=== PATIENT | female | born 1970 | race African-American/Black ===

== ENCOUNTER 2017-01-14 08:34 | Inpatient (IN) | payer OTHER ==
[2017-01-12 14:02] VITALS: BMI 42.0
[~2017-01-14 08:34] MED LIST: BUPIVACAINE HCL/PF 0.5% (5MG/ML) 10 ML VIAL IJ ONE
[2017-01-14] MEDS ORDERED: LIDOCAINE HCL/PF 2% SDV 5ML VIAL ONE (10:04)
[2017-01-14] MEDS ORDERED: PROPOFOL 20 ML ONE ×3 (10:05→12:35)
[2017-01-14] MEDS ORDERED: ROCURONIUM BROMIDE 50 MG/5 ML VIAL ONE (10:05)
[2017-01-14] MEDS ORDERED: SUCCINYLCHOLINE CHLORIDE 200 MG/10 ML VIAL ONE (10:05)
[2017-01-14] MEDS ORDERED: MIDAZOLAM HCL 2 MG/2 ML SINGLE DOSE VIAL ONE (10:05)
[2017-01-14] MEDS ORDERED: ceFAZolin SODIUM 1 GM VIAL IVPB ONE (10:58)
[2017-01-14] MEDS ORDERED: ceFAZolin SODIUM 1 GM VIAL ONE (10:58)
[2017-01-14] MEDS ORDERED: BUPIVACAINE HCL/PF 0.5% (5MG/ML) 10 ML VIAL ONE (11:05)
[2017-01-14] MEDS ORDERED: NEOSTIGMINE METHYLSULFATE 0.5 MG/ML - 10 ML MDV ONE (12:39)
[2017-01-14] MEDS ORDERED: BUPIVACAINE HCL/PF 0.5% (5MG/ML) 10 ML VIAL IJ ONE (12:45)
[2017-01-14] MEDS ORDERED: GLYCOPYRROLATE 0.2 MG/1 ML VIAL ONE (13:15)
[2017-01-14] MEDS ORDERED: PROMETHAZINE HCL 25 MG/1 ML VIAL ONE (13:18)
[2017-01-14] MEDS ORDERED: ONDANSETRON 4 MG/2 ML VIAL IVPUSH PRN (13:23)
[2017-01-14] MEDS ORDERED: PROMETHAZINE HCL 25 MG/1 ML VIAL IVPUSH PRN (13:23)
--- NOTE | 2017-01-14 13:24 | HP ---
History & Physical Update - History History: No Change - Physical Physical: No Change - Assessment Assessment: No Change - Plan Plan: No Change Currently as noted:: Laparoscopic vertical sleeve gastrectomy, possible liver biopsy
[2017-01-14] MEDS ORDERED: HYDROmorphone HCL CARPU-JECT 1 MG/1 ML DISP.SYRIN IVPB PRN (13:27)
[2017-01-14] MEDS ORDERED: ALBUTEROL SO4 18 GM HFA INHALER IH PRN ×2 (13:28→17:54)
[2017-01-14] MEDS ORDERED: ACETAMINOPHEN 1000 MG/100 ML VIAL (NON FORMULARY) IVPB SCH (13:30)
[2017-01-14] MEDS ORDERED: LACTATED RINGERS SOLUTION 1,000 ML IV SCH (13:30)
[2017-01-14] MEDS ORDERED: ONDANSETRON 4 MG/2 ML VIAL IVPB SCH (13:30)
[2017-01-14] MEDS ORDERED: SODIUM CHLORIDE 1,000 ML IV SCH (13:30)
--- NOTE | 2017-01-14 13:31 | OP ---
Operative Note - Note: Operative Date: 01/14/17 Pre-Operative Diagnosis: Morbid obesity Operation: Laparoscopic vertical sleeve gastrectomy, wedge liver biopsy, upper endoscopy Post-Operative Diagnosis: Other (morbid obesity, hepatomegaly) Surgeon: Jonathan Lamas Preassembler [employer]ed [employer] Board: Roxanne Persaud Anesthesia: General Specimens Removed: Greater curvature of stomach, left lobe liver wedge biopsy Estimated Blood Loss (mls): 30 Drains & Tubes with Location: 36 fr Bougie Operative Report Dictated: Yes
[2017-01-14] MEDS ORDERED: HYDROmorphone HCL CARPU-JECT 2 MG/1 ML DISP.SYRIN ONE (13:32)
[2017-01-14] MEDS: HYDROmorphone HCL CARPU-JECT 1 MG/1 ML DISP.SYRIN IVPUSH PRN ×4 (13:35→14:40)
--- NOTE | 2017-01-14 13:58 | SPEC ---
DATE OF OPERATION: 01/14/2017 PREOPERATIVE DIAGNOSIS: Morbid obesity. POSTOPERATIVE DIAGNOSIS: Morbid obesity and hepatomegaly. SURGEON: Jonathan Lamas MD DATABASE ADMINISTRATION MANAGER: ANTONIA Pepe PROCEDURE: Laparoscopic vertical sleeve gastrectomy, laparoscopic wedge liver biopsy of the left lobe of the liver, and upper endoscopy. SPECIMEN: Greater curvature of the stomach and wedge biopsy of the left lobe of the liver. ESTIMATED BLOOD LOSS: 30 mL. DRAIN: None. ANESTHESIA: GET 36-[place] Bougie. REASON FOR PROCEDURE: This is a 46-year-old female who presents to the office for weight loss options are meeting criteria. She decided to proceed with laparoscopic vertical sleeve gastrectomy, possible open. RISKS AND BENEFITS: After describing the different options for weight loss management, the patient decided to proceed with a laparoscopic, possible open vertical sleeve gastrectomy. The patient was seen by the respective subspecialties and cleared for surgery. The risks and benefits of the procedure were explained. These included bleeding, infection, hernia, OR, DVT, PE, injury to surrounding structures including the liver, colon, bowel, spleen, esophagus, vessel injury, nerve injury, weight regain, gastric leak, staple line leak, sleeve leak, obstruction, vitamin deficiency, hair loss and as some of the possible complications. The patient understood and signed informed consent. DESCRIPTION OF PROCEDURE: The patient was placed supine on the operating room table. The patient underwent general endotracheal intubation. A Desai catheter was inserted. The arms were brought out at 90 degrees and secured. A footboard was placed and the legs were secured laterally with padding. The abdomen was prepped and draped in the usual sterile fashion. A timeout was performed. An incision was made in the left upper quadrant and a Veress needle inserted. Pneumoperitoneum was established. Subsequently, the Veress needle was removed and a 12-mm trocar was placed. The laparoscopic camera was then inserted and inspection of the abdominal cavity was performed. An incision was then made in the supraumbilical area and a 15-mm trocar was placed under direct visualization. A 5-mm trocar was then placed in the right upper quadrant and a 5-mm trocar was placed below the left subcostal margin. A stab wound was made in the subxiphoid area and a Trice clamp inserted and removed to dilate the tract. A Bayron liver retractor was inserted. The post was secured at the bedside by the nursing staff. The patient was placed in steep reverse Trendelenburg position and the Bayron liver retractor was used to secure the liver towards the anterior abdominal wall. The pylorus was identified and 6 cm proximal to it, the lesser sac was entered using the LigaSure device. All lateral attachments to the greater curvature of the stomach, including the short gastric vessels, were ligated using the LigaSure device toward the gastrosplenic and gastrophrenic ligaments. Once this was done in its entirety, it was confirmed that all tubes within the nasal or oropharyngeal cavity, including a temperature probe, was removed by Anesthesia. The bougie was then inserted by Anesthesia. Transection of the stomach was then begun staying adjacent to the bougie but away from the angularis. Transection of the stomach was performed near the portion of the stomach where the lesser sac was entered. Two laparoscopic Endo-LIANA black janel were used at this location. Laparoscopic Endo LIANA purple staple loads were then used for the remainder of the transection until the greater curvature of the stomach was fully transected. This was done staying close to the bougie. Care was taken to stay away from the angle of His cephalad. The staple line was then inspected. Hemostasis was identified. A leak test was then performed using upper endoscopy. The stomach was clamped distally to the staple line. Irrigation solution was placed in the left upper quadrant and the endoscope inserted and air insufflated. The entirety of the staple line was inspected. The staple line was fully intact air. No leaks were identified. No obstruction was identified. This was done through the entirety of the staple line. At this point, the irrigation solution was suctioned and again , hemostasis was noted. The stomach was suctioned and the endoscope removed. A wedge liver biopsy was then performed. The left lobe of the liver was identified and a portion of the edge was grasped. Using electrocautery, a wedge of the liver was excised. This was removed and sent off the field as specimen. Hemostasis at the site of the wedge liver biopsy was attained using electrocautery. The 15-mm supraumbilical trocar was then removed and the greater curvature specimen removed from the site using a sponge stick welch. The specimen was inspected and a Veress needle inserted. The specimen insufflated adequately and no leak was identified. The staple line was noted to be intact. A Ramón-Lexus device was then used to temporarily close the fascia with a 0 Vicryl suture at the site. The 15-mm trocar was then reinserted and the 12-mm trocar in the left upper quadrant was removed. In addition, at the end of the case, an upper endoscopy was performed to inspect the entirety of the staple line and do a further leak test. No leak was identified, and no obstructions were identified. The staple line was noted to be fully intact. The fascia at this site was then closed using the Ramón-Lexus device with a 0 Vicryl suture. Again, hemostasis was noted. The Bayron liver retractor was then removed under direct visualization. Pneumoperitoneum was desufflated and the fascial sutures were secured. Hemostasis was noted at all incision sites and Marcaine was injected at all incision sites. All incision sites were closed using 4-0 Biosyn. Sterile dressings were applied. The patient tolerated the procedure well and was transferred to the recovery room in stable condition with the Desai catheter intact. The patient was transferred to telemetry for further monitoring. Марина [id number] MTDD
[2017-01-14 14:03] LABS: MCH 28.7 pg (25.7-33.7); MCHC 32.2 g/dl (32.0-36.0); MEAN CELL VOLUME 89.3 fl (80-96); MEAN PLT VOLUME 7.3 fl (7.5-11.1); PLATELET COUNT 317 K/MM3 (134-434); RDW 15.1 % (11.6-15.6)
[2017-01-14] MEDS ORDERED: ACETAMINOPHEN INJECTION 100 ML IVPB ONE (14:09)
[2017-01-14 14:30] LABS: ALBUMIN 3.4 g/dl (3.4-5.0); ANION GAP 10 (8-16); BILIRUBIN,TOTAL 0.3 mg/dL (0.2-1.0); CALCIUM 8.4 mg/dL (8.5-10.1); CO2 25 mmol/L (21-32); CREATININE 0.7 mg/dL (0.55-1.02); GLUCOSE,RANDOM 165 mg/dL (74-106); SGOT/AST 121 U/L (15-37); SGPT/ALT 96 U/L (12-78); TOT PROT 6.8 g/dl (6.4-8.2)
[2017-01-14 14:31] LABS: ALK PHOS 70 U/L (45-117)
[2017-01-14] MEDS ORDERED: METOCLOPRAMIDE HCL INJECTION 10 MG/2 ML VIAL IVPB SCH (15:00)
[2017-01-14] MEDS ORDERED: INSULIN SLIDING SCALE (NOVOLOG) 1 VIAL SQ SCH (16:30)
--- NOTE | 2017-01-14 17:21 | SURG ---
Surgery Zone Maintenance Technician Note Zone Maintenance Technician: Roxanne Persaud PA-C Date of Service: 01/14/17 Diagnosis: Morbid obesity Laparoscopic vertical sleeve gastrectomy, wedge liver biopsy, upper endoscopy I was present for the entirety of the operative procedure. For further detail, please refer to operative report. Visit type - Case Type Case Type: Scheduled Admission - Emergency Emergency Visit: No - New patient This patient is new to me today: Yes Date on this admission: 01/14/17 - Critical Care Critical Care patient: No
[2017-01-14] MEDS: METOCLOPRAMIDE HCL INJECTION 10 MG/2 ML VIAL IVPB SCH (20:05)
[2017-01-14] MEDS: SODIUM CHLORIDE 1,000 ML IV SCH (20:07)
[2017-01-14] MEDS: HYDROmorphone HCL CARPU-JECT 1 MG/1 ML DISP.SYRIN IVPB PRN (20:21)
[2017-01-14] MEDS ORDERED: PT OWN MED DRAWER 7, Y5N ONE (20:45)
[2017-01-14] MEDS: ONDANSETRON 4 MG/2 ML VIAL IVPB SCH (21:06)
[2017-01-14] MEDS: ACETAMINOPHEN 1000 MG/100 ML VIAL (NON FORMULARY) IVPB SCH (21:21)
[2017-01-14] MEDS: ENOXAPARIN NA (PORCINE) 40 MG/0.4 ML DISP.SYRIN SQ SCH (21:22)
[2017-01-14] MEDS: FAMOTIDINE 20 MG/50 ML IVPB 50 ML IVPB SCH (21:24)
[2017-01-14] MEDS ORDERED: ENOXAPARIN NA (PORCINE) 40 MG/0.4 ML DISP.SYRIN SQ SCH (22:00)
[2017-01-14] MEDS ORDERED: FAMOTIDINE 20 MG/50 ML IVPB 50 ML IVPB SCH (22:00)
[2017-01-14] MEDS ORDERED: PATIENT'S OWN MEDICATION (NON-FORMULARY) (Fluticasone Propionate [Flovent Diskus] 2 PUFF) IH SCH ×2 (22:00)
[2017-01-15] MEDS: ONDANSETRON 4 MG/2 ML VIAL IVPB SCH ×6 (00:55→20:49)
[2017-01-15] MEDS: HYDROmorphone HCL CARPU-JECT 1 MG/1 ML DISP.SYRIN IVPB PRN ×3 (01:21→15:24)
[2017-01-15] MEDS: ACETAMINOPHEN 1000 MG/100 ML VIAL (NON FORMULARY) IVPB SCH (02:05)
[2017-01-15] MEDS: METOCLOPRAMIDE HCL INJECTION 10 MG/2 ML VIAL IVPB SCH ×4 (02:36→20:13)
[2017-01-15] MEDS: SODIUM CHLORIDE 1,000 ML IV SCH ×2 (05:23→14:56)
[2017-01-15 07:25] LABS: MCH 28.9 pg (25.7-33.7); MCHC 32.4 g/dl (32.0-36.0); MEAN CELL VOLUME 89.2 fl (80-96); MEAN PLT VOLUME 7.5 fl (7.5-11.1); PLATELET COUNT 289 K/MM3 (134-434); RDW 14.9 % (11.6-15.6)
[2017-01-15 07:53] LABS: ALBUMIN 2.8 g/dl (3.4-5.0); ANION GAP 6 (8-16); CO2 27 mmol/L (21-32); GLUCOSE,RANDOM 84 mg/dL (74-106)
[2017-01-15 07:57] LABS: ALK PHOS 62 U/L (45-117); BILIRUBIN,TOTAL 0.6 mg/dL (0.2-1.0); CALCIUM 8.1 mg/dL (8.5-10.1); CREATININE 0.5 mg/dL (0.55-1.02); SGOT/AST 92 U/L (15-37); SGPT/ALT 88 U/L (12-78); TOT PROT 5.9 g/dl (6.4-8.2)
[2017-01-15] MEDS: INSULIN SLIDING SCALE (NOVOLOG) 1 VIAL SQ SCH ×3 (07:57→16:47)
--- NOTE | 2017-01-15 09:08 | PN ---
Progress Note (short form) - Note Progress Note: Anesthesia POD#1 S/P Gastric Sleeve under GA VSS,OOB, feels nauseous,have moderate pain, She is receiving antiemetic, No complications to anesthesia seen. Diann Guzman MD.
[2017-01-15] MEDS: ENOXAPARIN NA (PORCINE) 40 MG/0.4 ML DISP.SYRIN SQ SCH ×2 (09:09→22:06)
[2017-01-15] MEDS: FAMOTIDINE 20 MG/50 ML IVPB 50 ML IVPB SCH ×2 (09:09→22:06)
[2017-01-15] MEDS ORDERED: ACETAMINOPHEN 325 MG TABLET (FP) PO PRN (16:28)
[2017-01-15] MEDS ORDERED: SODIUM CHLORIDE 1,000 ML IV SCH (16:30)
--- NOTE | 2017-01-15 18:38 | PN ---
Progress Note (short form) - Note Progress Note: POD 1 Pain controlled No nausea Vital Signs Period Temp Pulse Resp BP Sys/Cruz Pulse Ox Last 24 Hr 97.7 F-99.1 F 96-100 18-20 106-129/54-73 95-98 Abd soft CBC, BMP 01/15/17 05:35 01/15/17 05:35 UGI- no leak/obstruction Clears OOB Discharge planning
--- NOTE | 2017-01-15 18:39 | DS ---
"Physical Examination Vital Signs: Vital Signs Temperature 97.7 F 01/15/17 18:00 Pulse Rate 100 H 01/15/17 18:00 Respiratory Rate 18 01/15/17 18:00 Blood Pressure 117/59 01/15/17 18:00 O2 Sat by Pulse Oximetry (%) 98 01/15/17 09:44 Constitutional: Yes: Calm HENT: Yes: WNL Neck: Yes: Supple Cardiovascular: Yes: Regular Rate and Rhythm Respiratory: Yes: CTA Bilaterally Gastrointestinal: Yes: Soft Wound/Incision: Yes: Dressing Dry and Intact Neurological: Yes: Alert, Oriented Labs: CBC, BMP 01/15/17 05:35 01/15/17 05:35 Discharge Summary Reason For Visit: MORBID (SEVERE) OBESITY DUE TO EXCESS CALORIES Current Active Problems Hepatomegaly (Acute) Morbid (severe) obesity due to excess calories (Acute) Procedures: Principal: Sleeve gastrectomy, liver biopsy Condition: Stable - Instructions Diet, Activity, Other Instructions: [address] [facility] Jonathan Lamas M.D. [address] [place] [address], [address] [facility] [address] [facility] [place] [address] Robotic, Bariatric and General Surgery Postoperative Instructions for Bariatric Surgery Activity: Resume normal everyday activity as tolerated. You may walk and climb stairs without any limitation. We encourage you to walk as often as you can Do not lift anything more than 10 pounds for 8 weeks. At that time, you can return to full activity, including the gym, without limitation. Do not drive a motor vehicle while taking prescribes narcotic pain medication. Wound Care: If you have a bandage in place, leave it on for 3 days. At that time you may remove the outer bandage. If there are strips of tape on the skin after removing the outer bandage, leave them in place. They will fall off by themselves. Do not remove them. If there is clear glue on the skin after removing the outer bandage, leave it in place. Do not pick at it or peel it off. You may shower after taking the outer bandage off, 3 days after your surgery. If incisions become red, warm or open, please call the office. Diet: Continue a sugar-free, non-carbonated Clear liquid diet three times a day for the first week-Stage I diet. In addition, you should drink 8 ounces of water every hour. When drinking, sips should be slow and steady, not large and quick. After the first week, call the office to be advanced to the next dietary stage. Do not advance stages until instructed. Your diet will be advanced over the phone each week. Medications/Pain Management: You may resume previous medications unless told otherwise. The pills may be swallowed whole or broken if scored. You may take the prescribed narcotic pain medication as needed. If the narcotic medication is not needed for pain control, you may take Tylenol. Avoid all other pain medications including Advil, Ibuprofen, Motrin, Aspirin, Naprosyn, Aleve, Celebrex. You will receive Pepcid. Please take this twice a day as prescribed. Dizziness,Headaches/Gas Pain: Make sure you are getting enough fluids daily. Patients on diuretics or water pills may need medication adjusted. Some fluids such as broth or Gatorade may help. Gas pains are common in the first few weeks after surgery. At times they can be worse than surgical pain. Walking can help. You can also use Mylanta, Maalox, or Gas-X. Vomiting/Nausea: This may occur if you eat too fast, don't chew, or eat too much. Go back to fluids. If the vomiting or nausea persists, call the office. Constipation/Diarrhea: You may experience a change in bowel habits. Many things affect this, including a decrease in food intake, not enough fluid and taking pain medication. Some people experience diarrhea after the barium swallow in x-ray. If either persist, call the office. Follow up: Call the office at [phone] for an appointment 2 weeks after your surgical procedure. This report was requested by: Roxanne Persaud | Reference #: [id number] Disposition: HOME - Home Medications Comprehensive Discharge Medication List: Ambulatory Orders Albuterol Sulfate Inhaler - [Ventolin Hfa Inhaler -] 1 - 2 inh PO Q4H PRN Dihydroergotamine Mesylate 4 spray NS DAILY PRN 01/12/17 Fluticasone Prop 0.05% Nasal [Flonase -] 1 spray DAILY 01/12/17 Fluticasone Propionate [Flovent Diskus] 2 puff IH BID 01/12/17 Loratadine 10 mg PO DAILY 01/12/17 Metformin HCl 500 mg PO DAILY 01/12/17 Pravastatin Sodium [Pravachol] 40 mg PO DAILY 01/12/17 Tramadol HCl 50 mg PO BID PRN 01/12/17 Vitamin D3 50,000 units WEEKLY 01/12/17 Famotidine [Pepcid] 20 mg PO BID #60 tablet 01/14/17 Oxycodone HCl/Acetaminophen [Percocet 5-325 mg Tablet] 1 - 2 tab PO Q4H PRN #20 tablet MDD 8 01/14/17"
[2017-01-15] MEDS: oxyCODONE HCL 5 MG TABLET PO PRN (20:22)
[2017-01-15] MEDS ORDERED: PT OWN MED DRAWER 7, Y5N ONE (22:11)
[2017-01-15] MEDS ORDERED: PNEUMOC 13-VAL CONJ-DIP CRM/PF 0.5 ML DISP.SYRIN IM ONE (22:18)
[2017-01-16] MEDS: ONDANSETRON 4 MG/2 ML VIAL IVPB SCH ×3 (01:11→10:46)
[2017-01-16] MEDS: METOCLOPRAMIDE HCL INJECTION 10 MG/2 ML VIAL IVPB SCH ×2 (03:26→10:46)
[2017-01-16] MEDS: INSULIN SLIDING SCALE (NOVOLOG) 1 VIAL SQ SCH ×2 (06:01→12:00)
[2017-01-16] MEDS: FAMOTIDINE 20 MG/50 ML IVPB 50 ML IVPB SCH (10:46)
[2017-01-16] MEDS: ENOXAPARIN NA (PORCINE) 40 MG/0.4 ML DISP.SYRIN SQ SCH (10:46)
[2017-01-16] MEDS: oxyCODONE HCL 5 MG TABLET PO PRN (10:55)
[2017-01-16 14:19] VITALS: BP 113/64; PULSE 93; TEMP 98.5
--- NOTE | 2017-01-18 17:58 | PATH ---
Surgical Pathology Report Patient Name: YANELY POLK [facility]. Rec. #: [id number] /Age/Gender: 1970 (Age: 46) / F Account: [id number] Location: 4 SO PEDS/ADOL Taken: 01/14/2017 Received: 01/15/2017 Reported: 01/18/2017 Physicians: Jonathan Lamas M.D. Specimen(s) Received A: LIVER BIOPSY B: STOMACH-SUBTOTAL/TOTAL RESECTION.OTHER THAN TUMOR Clinical History Morbid (severe) obesity Final Diagnosis A. LIVER, BIOPSY: LIVER WITH MILD STEATOSIS (< 5%). NO INCREASE IN IRON OR FIBROSIS SHOWN ON SPECIAL STAINS (IRON, TRICHROME). B. STOMACH, GREATER CURVATURE, LAPAROSCOPIC VERTICAL SLEEVE GASTRECTOMY: PORTION OF STOMACH WITH MINIMAL CHRONIC INFLAMMATION. IMMUNOHISTOCHEMICAL STAIN FOR H. PYLORI IS NEGATIVE. Electronically Signed Elizabeth Forte M.D. Gross Description A. Received in formalin labeled "liver biopsy," is a 2.3 x 2.0 x 0.3 cm aggregate of mcmillan soft tissue fragments, consistent with liver tissue. The specimen is submitted in toto in one cassette. B. Received in formalin, labeled "greater curvature of stomach," is a 84 gram, 16.5 x 3.5 x 2.7 cm. portion of stomach with a stapled margin of resection. The serosa is mcmillan-lock with minimal attached fat. The mucosa is mcmillan-pink with normal folds. No mucosal masses are identified. Nutrition Helper sections are submitted in one cassette. 01/15/2017 saudi01/15/2017
== END 2017-01-16 15:29 | disposition home or self-care (01) | DRG 403 ==
LOC: JSAMEDAYSX 08:34 → J4S 15:48
PROVIDERS: ADMIT Surgery; ATTEND Surgery
PROC: BD15ZZZ Fluoroscopy of Upper GI (ICD-10-PCS; 2017-01-14)
PROC: 0DB64Z3 Excision of Stomach, Percutaneous Endoscopic Approach, Vertical (ICD-10-PCS; principal; 2017-01-14 10:00)
PROC: 0FB24ZX Excision of Left Lobe Liver, Percutaneous Endoscopic Approach, Diagnostic (ICD-10-PCS; 2017-01-14 10:00)
DX: E66.01 Morbid (severe) obesity due to excess calories (principal); R16.0 Hepatomegaly, not elsewhere classified; Z68.41 Body mass index [BMI] 40.0-44.9, adult
CPT/HCPCS: 36415; 74241-TC; 80053; 84703; 85027; 86850; 86900; 86901; 88305-TC; 94010; 94760

== ENCOUNTER 2022-03-09 11:40 | Emergency (ER) | payer OTHER ==
[2022-03-09] MEDS ORDERED: SODIUM CHLORIDE 1,000 ML IV ONE (12:08)
[2022-03-09] MEDS ORDERED: ACETAMINOPHEN 1000 MG/100 ML BAG IVPB ONE (12:08)
[2022-03-09] MEDS ORDERED: ONDANSETRON 4 MG/2 ML VIAL IVPB ONE (12:08)
[2022-03-09] MEDS ORDERED: LIDOCAINE 5% TOPICAL PATCH TP ONE (12:17)
[2022-03-09] MEDS ORDERED: ACETAMINOPHEN INJECTION 100 ML IVPB ONE (12:28)
[2022-03-09] MEDS ORDERED: ONDANSETRON 4 MG/2 ML VIAL ONE (12:28)
[2022-03-09] MEDS ORDERED: LIDOCAINE 5% TOPICAL PATCH ONE (12:44)
[2022-03-09 12:48] LABS: HEMATOCRIT 41.9 % (32.4-45.2); MCH 30.9 pg (25.7-33.7); MCHC 33.5 g/dl (32.0-36.0); MEAN CELL VOLUME 92.3 fl (80-96); MEAN PLT VOLUME 7.1 fl (7.5-11.1); PLATELET COUNT 289.1 10^3/uL (134-434); RBC 4.54 10^6/uL (3.60-5.2); RDW 14.3 % (11.6-15.6); WHITE BLOOD COUNT 6.8 10^3/uL (4.0-10.8)
[2022-03-09 13:07] LABS: ALBUMIN 4.1 g/dl (3.4-5.0); BILIRUBIN,TOTAL 0.5 mg/dl (0.2-1); CALCIUM 8.9 mg/dl (8.5-10); CREATININE 0.5 mg/dl (0.55-1.3); TOT PROT 7.2 g/dl (6.4-8.2)
[2022-03-09] MEDS ORDERED: morphine CARPU-JECT 2 MG/1 ML DISP.SYRIN IVPUSH ONE (13:36)
[2022-03-09] MEDS ORDERED: morphine SULFATE 4 MG/ML VIAL ONE ×2 (13:45→15:13)
[2022-03-09 14:05] VITALS: BP 122/77; TEMP 98.1; BMI 22.6
[2022-03-09] MEDS ORDERED: morphine CARPU-JECT 4 MG/1 ML DISP.SYRIN IVPUSH ONE (15:08)
[2022-03-09 16:51] VITALS: PULSE 98; RESP 18
[2022-03-09] MEDS ORDERED: LIDOCAINE PATCH REMOVAL MC SCH (22:00)
== END 2022-03-09 16:54 | disposition home or self-care (01) ==
LOC: FER 11:40
PROC: 3E033GC Introduction of Other Therapeutic Substance into Peripheral Vein, Percutaneous Approach (ICD-10-PCS; principal; 2022-03-09)
DX: S29.012A Strain of muscle and tendon of back wall of thorax, initial encounter (principal); Y99.8 Other external cause status
CPT/HCPCS: 36415; 74176-TC; 80053; 81003; 84484; 85027; 93005; 99285-25

== ENCOUNTER 2023-01-23 14:50 | Emergency (ER) | payer OTHER ==
[2023-01-23 15:04] VITALS: BP 118/70; PULSE 88; RESP 16; TEMP 98.2; BMI 20.2
== END 2023-01-23 15:45 | disposition home or self-care (01) ==
LOC: SUPCPDRO 14:50 → FER 14:50
PROC: 0H9JXZZ Drainage of Left Upper Leg Skin, External Approach (ICD-10-PCS; principal; 2023-01-23)
DX: L02.416 Cutaneous abscess of left lower limb (principal); R22.0 Localized swelling, mass and lump, head
CPT/HCPCS: 10060; 87070; 87186; 87205; 99283-25

== ENCOUNTER 2023-07-03 15:09 | Inpatient (IN) | payer OTHER ==
[2023-07-03 16:53] LABS: ALBUMIN 3.7 g/dl (3.4-5.0); BILIRUBIN,TOTAL 0.3 mg/dl (0.2-1); CALCIUM 8.6 mg/dl (8.5-10.1); CREATININE 0.4 mg/dl (0.6-1.3); POTASSIUM 4.2 mmol/L (3.5-5.1)
[2023-07-03 17:10] LABS: HEMATOCRIT 33.9 % (32.4-45.2); HEMOGLOBIN 11.2 G/dL (10.7-15.3); MCH 30.3 pg (25.7-33.7); MCHC 33.2 g/dl (32.0-36.0); MEAN CELL VOLUME 91.5 fl (80-96); MEAN PLT VOLUME 7.8 fl (7.5-11.1); PLATELET COUNT 242.5 10^3/uL (134-434); RBC 3.71 10^6/uL (3.60-5.2); RDW 14.6 % (11.6-15.6); WHITE BLOOD COUNT 7.1 10^3/uL (4.0-10.8)
[2023-07-03] MEDS ORDERED: ACETAMINOPHEN INJECTION 100 ML IVPB ONE (18:14)
[2023-07-03] MEDS ORDERED: PIPERACILLIN/TAZOBACTAM 3.375 GM VIAL IVPB ONE (19:45)
[2023-07-03] MEDS ORDERED: VANCOMYCIN 1,000 MG VIAL (RESTRICTED TO ID ONLY) ONE (19:45)
[2023-07-03] MEDS: D5-1/2NS+20 MEQ KCL - 20 MEQ/1,000 ML INFUS.BAG IV SCH (20:07)
[2023-07-03] MEDS: PIPERACILLIN/TAZOB 3.375 GM 3.375 GM in DEXTROSE 5%-WATER - 50 ML IVPB SCH (20:08)
[2023-07-03] MEDS: VANCOMYCIN 1 GM PREMIX - 1 GM/200 ML BAG IVPB ONE (21:45)
[2023-07-03 23:07] VITALS: BMI 20.6
[2023-07-03] MEDS: oxyCODONE HCL 5 MG TABLET PO PRN (23:54)
[2023-07-03] MEDS: HEPARIN NA (PORCINE) 5,000 UNITS/ML 1ML VIAL SQ SCH (23:55)
[2023-07-04 10:27] LABS: POTASSIUM 4.4 mmol/L (3.5-5.1)
[2023-07-04 10:29] LABS: ALBUMIN 2.6 g/dl (3.4-5.0); CALCIUM 7.9 mg/dL (8.5-10.1)
[2023-07-04 10:30] LABS: BLOOD UREA NITROGEN 9.1 mg/dL (7-18)
[2023-07-04 10:32] LABS: BASO % 0.3 % (0-2.0); CREATININE 0.5 mg/dL (0.55-1.3); EOS % 1.8 % (0-4.5); HEMATOCRIT 31.6 % (32.4-45.2); HEMOGLOBIN 10.4 GM/dL (10.7-15.3); LYMPH % 47.9 % (8-40); MCH 29.8 pg (25.7-33.7); MEAN CELL VOLUME 90.2 fl (80-96); MEAN PLT VOLUME 7.6 fl (7.5-11.1); MONO % 6.8 % (3.8-10.2); NEUT % 43.2 % (42.8-82.8); PLATELET COUNT 250 10^3/uL (134-434); RDW 14.6 % (11.6-15.6); WHITE BLOOD COUNT 4.2 K/mm3 (4.0-10.0)
[2023-07-04 10:34] LABS: BILIRUBIN,TOTAL 0.4 mg/dL (0.2-1); TOT PROT 5.3 g/dl (6.4-8.2)
[2023-07-04] MEDS: ACETAMINOPHEN 325 MG TABLET (FP) PO PRN (12:02)
[2023-07-04] MEDS: PANTOPRAZOLE 40 MG TABLET PO SCH (12:02)
[2023-07-04] MEDS: VANCOMYCIN/WATER FOR INJ (PEG) 1,000 MG/200 ML BAG IVPB SCH (16:00)
[2023-07-04] MEDS: PIPERACILLIN/TAZOB 3.375 GM 3.375 GM in DEXTROSE 5%-WATER - 50 ML IVPB SCH ×2 (16:03→18:00)
[2023-07-04] MEDS: D5-1/2NS+20 MEQ KCL - 20 MEQ/1,000 ML INFUS.BAG IV SCH (19:20)
[2023-07-05] MEDS ORDERED: Pregnancy Control Solution IV ONE (07:50)
[2023-07-05 09:10] LABS: BASO % 0.3 % (0-2.0); HEMATOCRIT 32.3 % (32.4-45.2); HEMOGLOBIN 10.5 GM/dL (10.7-15.3); LYMPH % 45.7 % (8-40); MCH 29.8 pg (25.7-33.7); MCHC 32.6 g/dl (32.0-36.0); MEAN CELL VOLUME 91.3 fl (80-96); MEAN PLT VOLUME 7.6 fl (7.5-11.1); MONO % 6.1 % (3.8-10.2); NEUT % 44.9 % (42.8-82.8); PLATELET COUNT 256 10^3/uL (134-434); RBC 3.54 M/mm3 (3.60-5.2); RDW 14.3 % (11.6-15.6)
[2023-07-05 09:13] LABS: ALBUMIN 3.3 g/dl (3.4-5.0); BILIRUBIN,TOTAL 0.3 mg/dl (0.2-1); CALCIUM 8.6 mg/dl (8.5-10.1); CREATININE 0.5 mg/dl (0.6-1.3); POTASSIUM 4.4 mmol/L (3.5-5.1); TOT PROT 5.4 g/dl (6.4-8.2)
[2023-07-06 00:11] VITALS: RESP 18; TEMP 97.9
[2023-07-06 06:35] VITALS: BP 98/54; PULSE 81
== END 2023-07-06 11:00 | disposition home or self-care (01) | DRG 383 ==
LOC: FER 15:09 → UNDOADMIN 19:05 → FM/S 19:05
PROVIDERS: ADMIT Family Medicine; ATTEND Family Medicine
DX: L03.211 Cellulitis of face (principal); E44.0 Moderate protein-calorie malnutrition; L02.01 Cutaneous abscess of face; Z98.84 Bariatric surgery status
CPT/HCPCS: 36415; 70481-TC; 70487-TC; 80053; 82607; 82728; 83540; 83550; 84443; 84703; 85025; 85027; 87040; 87070; 87075; 87186; 87205; 99285-25; J1644; Q9967